=== PATIENT | female | born 1955 | race Caucasian/White ===

== ENCOUNTER 2017-07-01 17:32 | Emergency (ER) | payer MEDICAID ==
[~2017-07-01] VITALS: Ht 157.5 cm; Wt 84.0 kg
[~2017-07-01 17:32] MED LIST: HYDR25TA; IBUP100T20; LOSA100T3
[2017-07-01] MEDS ORDERED: ONDANSETRON HCL 4MG/2ML VIAL IV ONE (18:00)
[2017-07-01] MEDS ORDERED: FAMOTIDINE 20MG/2ML VIAL IV ONE (18:00)
[2017-07-01] MEDS ORDERED: SODIUM CHLORIDE 0.9% 1,000 ML IV ONE (18:00)
[2017-07-01 18:24] LABS: CLARITY URINE CLEAR (CLEAR); COLOR URINE YELLOW (YELLOW); KETONES URINE TRACE (NEGATIVE); LEUKOCYTE ESTERASE URINE NEGATIVE (NEGATIVE); NITRITE URINE NEGATIVE (NEGATIVE); OCCULT BLOOD URINE TRACE (NEGATIVE); PH URINE 5.5 (4.5-8.0); PROTEIN URINE NEGATIVE (NEGATIVE); SPECIFIC GRAVITY URINE 1.024 (1.005-1.030)
[2017-07-01 18:30] LABS: BASOPHILS % 0.4 % (0.0-2.0); EOSINOPHILS % 2.8 % (0.0-5.0); HEMATOCRIT. 37.3 % (36.0-48.0); HEMOGLOBIN. 12.6 g/dL (12.0-16.0); MEAN CORPUSCULAR VOLUME 85.9 fL (81.0-99.0); MEAN PLATELET VOLUME 8.9 fl (7.4-10.4); NEUTROPHILS % 69.8 % (40.0-76.0); PLATELET 242 x1000/uL (130-400); PROTHROMBIN TIME 10.6 sec (9.4-11.6); RED BLOOD CELL COUNT 4.34 mill/uL (4.2-5.4); RED CELL DISTRIBUTION WIDTH 13.2 % (11.6-14.6)
[2017-07-01] MEDS ORDERED: ACETAMINOPHEN 325MG TABLET PO ONE (18:30)
[2017-07-01 18:31] LABS: CHLORIDE 102 mEq/L (98-107)
[2017-07-01 18:38] LABS: CARBON DIOXIDE 32 mEq/L (21-32)
[2017-07-01 20:17] VITALS: BP 108/60
== END 2017-07-01 20:15 | disposition home or self-care (01) ==
LOC: ER 18:02
DX: R10.31 Right lower quadrant pain (principal); G89.29 Other chronic pain; M25.562 Pain in left knee; I10 Essential (primary) hypertension; Z87.19 Personal history of other diseases of the digestive system; Z90.710 Acquired absence of both cervix and uterus; Z90.49 Acquired absence of other specified parts of digestive tract; Z98.890 Other specified postprocedural states
CPT/HCPCS: 36415; 80053; 81001; 83690; 85025; 85610; 93971; 96361; 96374; 96375; 99285; J2405; J3490; J7042; J7030

== ENCOUNTER 2017-07-04 13:43 | Emergency (ER) | payer MEDICAID ==
[~2017-07-04] VITALS: Ht 162.6 cm; Wt 84.0 kg
[2017-07-04 17:40] LABS: CLARITY URINE CLEAR (CLEAR); COLOR URINE YELLOW (YELLOW); GLUCOSE URINE NEGATIVE (NEGATIVE); KETONES URINE NEGATIVE (NEGATIVE); LEUKOCYTE ESTERASE URINE NEGATIVE (NEGATIVE); NITRITE URINE NEGATIVE (NEGATIVE); OCCULT BLOOD URINE NEGATIVE (NEGATIVE); PROTEIN URINE NEGATIVE (NEGATIVE); SPECIFIC GRAVITY URINE 1.021 (1.005-1.030); UROBILINOGEN URINE 0.2 E.U./dL (0.2-1.0)
[2017-07-04 17:40] LABS: BASOPHILS % 0.4 % (0.0-2.0); EOSINOPHILS % 2.3 % (0.0-5.0); HEMATOCRIT. 37.3 % (36.0-48.0); HEMOGLOBIN. 12.7 g/dL (12.0-16.0); LYMPHOCYTES % 21.5 % (20.0-50.0); MEAN CORPUSCULAR HEMOGLOBIN 29.3 pg (28.0-32.0); MEAN CORPUSCULAR VOLUME 85.9 fL (81.0-99.0); MEAN PLATELET VOLUME 8.6 fl (7.4-10.4); NEUTROPHILS % 69.8 % (40.0-76.0); PLATELET 238 x1000/uL (130-400); RED BLOOD CELL COUNT 4.34 mill/uL (4.2-5.4); RED CELL DISTRIBUTION WIDTH 13.2 % (11.6-14.6)
[2017-07-04 17:44] LABS: CHLORIDE 100 mEq/L (98-107); PROTHROMBIN TIME 10.8 sec (9.4-11.6)
[2017-07-04] MEDS ORDERED: FAMOTIDINE 20MG/2ML VIAL IV ONE (17:45)
[2017-07-04] MEDS ORDERED: ONDANSETRON HCL 4MG/2ML VIAL IV ONE (17:45)
[2017-07-04] MEDS ORDERED: KETOROLAC 30MG/ML VIAL IV ONE (17:45)
[2017-07-04 17:52] LABS: CARBON DIOXIDE 29 mEq/L (21-32)
[2017-07-04] MEDS ORDERED: DIPHENHYDRAMINE 50MG/ML VIAL IV PRN (18:15)
[2017-07-04] MEDS ORDERED: HYDROCODONE/ACETAMINOPHEN 5/325MG TABLET PO PRN (18:15)
[2017-07-04] MEDS ORDERED: IPRATROPIUM/ALBUTEROL 0.5-3(2.5)MG/3ML NEB INH PRN (18:15)
[2017-07-04] MEDS ORDERED: CLONIDINE 0.1MG TABLET PO PRN (18:15)
[2017-07-04] MEDS ORDERED: LORAZEPAM 0.5MG TABLET PO PRN (18:15)
[2017-07-04] MEDS ORDERED: NA PHOS,M-B/NA PHOS,DI-BA ENEMA 118ML PR PRN (18:15)
[2017-07-04] MEDS ORDERED: DOCUSATE SODIUM 100MG CAPSULE PO PRN (18:15)
[2017-07-04] MEDS ORDERED: MORPHINE SULFATE 2 MG/ML CPJ (NOT FOR IM USE) IV PRN (18:15)
[2017-07-04] MEDS ORDERED: GUAIFENESIN 200MG/10ML SUGAR FREE UDC PO PRN (18:15)
[2017-07-04] MEDS ORDERED: ONDANSETRON HCL 4MG/2ML VIAL IV PRN (18:15)
[2017-07-04] MEDS ORDERED: ACETAMINOPHEN 325MG TABLET PO PRN (18:15)
[2017-07-04] MEDS ORDERED: MAGNESIUM/ALUMINUM HYDROXIDE/SIMETHICONE 30ML UDC PO PRN (18:15)
[2017-07-04 18:30] VITALS: BP 145/62
== END 2017-07-04 18:56 | disposition home or self-care (01) ==
LOC: ER 13:59
DX: G89.29 Other chronic pain (principal); R10.13 Epigastric pain; I50.9 Heart failure, unspecified; I11.0 Hypertensive heart disease with heart failure; I25.10 Atherosclerotic heart disease of native coronary artery without angina pectoris
CPT/HCPCS: 36415; 80053; 81003; 83690; 85025; 85610; 96374; 96375; 99284; J1885; J2405; J3490; Z7610